=== PATIENT | male | born 1955 | race Caucasian/White ===

== ENCOUNTER 2017-08-17 07:58 | Day surgery (SDC) | payer BC, OTHER ==
[2017-08-15 12:38] VITALS: BMI 27.5
[2017-08-17] MEDS ORDERED: PROPOFOL 20 ML ONE (08:05)
[2017-08-17 08:31] VITALS: TEMP 98
[2017-08-17 10:11] VITALS: BP 130/81; PULSE 56
--- NOTE | 2017-08-18 14:29 | PATH ---
Surgical Pathology Report Patient Name: VIKRAM CHAMPION [facility]. Rec. #: [id number] /Age/Gender: 1955 (Age: 62) / M Account: [id number] Location: [facility]-ENDOS[facility] Taken: 08/17/2017 Received: 08/17/2017 Reported: 08/18/2017 Physicians: Toby Ho M.D. Specimen(s) Received BX ANTRUM Clinical History GI bleed Postoperative diagnosis: Gastritis Final Diagnosis GASTRIC ANTRUM, BIOPSY: GASTRIC MUCOSA WITH ACTIVE CHRONIC INFLAMMATION. IMMUNOSTAIN IS NEGATIVE FOR H. PYLORI ORGANISMS. Electronically Signed Walter Singh M.D. Gross Description Received in formalin, labeled "antrum" are 2 bruno, irregular portions of soft tissue measuring 0.3 and 0.5 cm. in greatest dimension. The specimens are submitted in toto in one cassette. /08/17/201708/17/2017
== END 2017-08-17 10:10 | disposition home or self-care (01) ==
LOC: FASU-ENDO 07:58
PROVIDERS: ATTEND Internal Medicine Gastroenterology
PROC: 0DB68ZX Excision of Stomach, Via Natural or Artificial Opening Endoscopic, Diagnostic (ICD-10-PCS; principal; 2017-08-17 09:21)
DX: D62 Acute posthemorrhagic anemia (principal); K29.60 Other gastritis without bleeding; K44.9 Diaphragmatic hernia without obstruction or gangrene
CPT/HCPCS: 88305-TC; 88342-TC